=== PATIENT | male | born 1940 | race Caucasian/White ===

== ENCOUNTER 2019-05-11 20:07 | Inpatient (IN) | payer MEDICARE, MEDICAID ==
[~2019-05-11] VITALS: Ht 167.6 cm; Wt 68.6 kg
[~2019-05-11 20:07] MED LIST: ACET-3068 PO; LISI-600 PO; METO1TAB12 PO; SIMV-42 PO
--- NOTE | 2019-05-11 20:16 | NUR ---
Stroke alert called, MD Guzman at bedside.
--- NOTE | 2019-05-11 20:26 | NUR ---
Pt transported to CT Addendum: 05/11/19 at 2036 by ALTA Pt transported to CT, remained with PT through transport along with GASTON Barrientos at bedside.
--- NOTE | 2019-05-11 20:28 | NUR ---
Arrived for level 1 with onset per pt at 1900 this evening. Pt was watching tv and went to stand up and became extremely dizzy and had to hold on for fear of falling. Pt denies weakness on one side, felt generally kind of weak. He denies vertigo, denies feeling nauseated or having vomited. Pt denies feeling ill. Current daily smoker with cough, h/o stroke some 10 years ago and received clot dissolver per pts step daughter. [place] an was able to drive himself to the hospital. Currently is alert, extremely [place], edentulous, general weakness in all 4's noted, legs more than arms., sensory intact, no aphasia, not oriented to age or month of year, follows commands and is appropriate. Drinkds 2-3 beers daily, none today. Pt says feels better now. [address] exam [address] Dr Maldonado who had pt stand. Able to take a few steps with stand by assist. Feeble, does not use a cane or walker.
--- NOTE | 2019-05-11 20:30 | NUR ---
Pt returned to room from CT. Stroke nurse Tessie at bedside.
[2019-05-11 20:42] LABS: BASOPHILS # (AUTO) 0.1 X10'3 (0-0.2); BASOPHILS % (AUTO) 0.7 % (0-1); EOSINOPHILS # (AUTO) 0.3 X10'3 (0-0.9); EOSINOPHILS % (AUTO) 3.6 % (0-6); HEMATOCRIT 45.8 % (42.0-52.0); HEMOGLOBIN 15.2 g/dl (14.0-17.9); LYMPHOCYTES # (AUTO) 1.5 X10'3 (1.1-4.8); MEAN CORPUSCULAR HEMOGLOBIN 33.6 PG (27.0-31.0); MEAN CORPUSCULAR HGB CONC 33.1 g/dL (33.0-36.5); MEAN CORPUSCULAR VOLUME 101.4 FL (78-98); MEAN PLATELET VOLUME 7.7 FL (7.4-10.4); MONOCYTES # (AUTO) 0.7 X10'3 (0-0.9); MONOCYTES % (AUTO) 7.1 % (2-12); NEUTROPHILS # (AUTO) 6.7 X10'3 (1.8-7.7); NEUTROPHILS % (AUTO) 72.6 % (42-75); PLATELET COUNT 238 X10'3 (140-440); RED BLOOD COUNT 4.52 X10'6 (4.70-6.10); RED CELL DISTRIBUTION WIDTH 13.5 % (11.5-14.5); WHITE BLOOD COUNT 9.2 X10'3 (4.5-11.0)
[2019-05-11 20:50] LABS: PARTIAL THROMBOPLASTIN TIME 28 SECONDS (22-32)
[2019-05-11 20:53] LABS: ALANINE AMINOTRANSFERASE 17 U/L (12-78); ALBUMIN 3.5 G/DL (3.4-5.0); ALBUMIN/GLOBULIN RATIO 0.9 (1.1-1.5); ALKALINE PHOSPHATASE 77 IU/L (46-116); ANION GAP 6 (8-16); ASPARTATE AMINO TRANSFERASE 14 U/L (10-37); BILIRUBIN,TOTAL 0.3 MG/DL (0.1-1.0); BLOOD UREA NITROGEN 11 MG/DL (7-18); BUN/CREATININE RATIO 10.7 (5.4-32.0); CALCIUM 9.6 MG/DL (8.5-10.1); CHLORIDE 106 MMOL/L (99-107); CREATININE 1.03 MG/DL (0.60-1.10); GLUCOSE 103 MG/DL (70-104); POTASSIUM 4.5 MMOL/L (3.5-5.1); SODIUM 141 MMOL/L (135-145); TOTAL CARBON DIOXIDE 29.1 MMOL/L (24-32); TOTAL PROTEIN 7.3 G/DL (6.4-8.2); eGFR 70 ML/MIN
[2019-05-11 20:57] LABS: TROPONIN I < 0.04 NG/ML (0.0-0.05)
[2019-05-11] MEDS ORDERED: METO-384 PO (21:00)
[2019-05-11] MEDS ORDERED: ASPI-1265 PO (21:00)
--- NOTE | 2019-05-11 21:02 | NUR ---
herlinda calling back to speak with LESLY WASHINGTON. Dr Paz taking call now.
[2019-05-11 21:04] LABS: CLARITY,URINE CLEAR (Clear); COLOR,URINE YELLOW (Yellow); GLUCOSE, URINE NEGATIVE (Neg); KETONES,URINE NEGATIVE (Neg); LEUKOCYTE ESTERASE ,URINE NEGATIVE (Neg); NITRITES, URINE NEGATIVE (Neg); OCCULT BLOOD,URINE NEGATIVE (Neg); PROTEIN,URINE NEGATIVE (Neg)
[2019-05-11 21:12] LABS: UA COLLECTION TYPE STRAIGHT CATH
--- NOTE | 2019-05-11 21:13 | NUR ---
Tony Helms, daughter, [phone]
[2019-05-11] MEDS ORDERED: aspirin 325mg tablet PO ONE (21:20)
--- NOTE | 2019-05-11 21:39 | NUR ---
at 2100 per stroke nurse, pt to be admitted, vital signs to move to hourly
[2019-05-11] MEDS ORDERED: mag hydrox/Alum hydrox/simeth 30ml oral suspension PO PRN (23:20)
[2019-05-11] MEDS ORDERED: magnesium hydroxide 30ml (MOM) UD suspension PO PRN (23:20)
[2019-05-11] MEDS ORDERED: ondansetron/PF 4mg/2ml inj IV PRN (23:20)
[2019-05-11] MEDS ORDERED: acetaminophen 325mg tablet PO PRN (23:20)
[2019-05-11 23:45] LABS: HEMOGLOBIN A1C 5.7 % (4.5-6.2)
[2019-05-11 23:50] VITALS: BP 146/69
[2019-05-12 02:30] VITALS: BP 114/69
[2019-05-12 06:00] VITALS: BP 106/66
[2019-05-12 06:10] LABS: BASOPHILS # (AUTO) 0.1 X10'3 (0-0.2); BASOPHILS % (AUTO) 0.8 % (0-1); EOSINOPHILS # (AUTO) 0.4 X10'3 (0-0.9); EOSINOPHILS % (AUTO) 6.2 % (0-6); HEMATOCRIT 40.9 % (42.0-52.0); LYMPHOCYTES # (AUTO) 2.1 X10'3 (1.1-4.8); LYMPHOCYTES % (AUTO) 28.7 % (21-51); MEAN CORPUSCULAR HEMOGLOBIN 34.7 PG (27.0-31.0); MEAN CORPUSCULAR HGB CONC 34.1 g/dL (33.0-36.5); MEAN CORPUSCULAR VOLUME 101.5 FL (78-98); MONOCYTES # (AUTO) 0.7 X10'3 (0-0.9); MONOCYTES % (AUTO) 9.7 % (2-12); NEUTROPHILS # (AUTO) 3.9 X10'3 (1.8-7.7); NEUTROPHILS % (AUTO) 54.6 % (42-75); PLATELET COUNT 195 X10'3 (140-440); RED BLOOD COUNT 4.03 X10'6 (4.70-6.10); RED CELL DISTRIBUTION WIDTH 13.6 % (11.5-14.5); WHITE BLOOD COUNT 7.2 X10'3 (4.5-11.0)
--- NOTE | 2019-05-12 06:15 | NUR ---
Patient in room [facility]TH[facility] 4010. I have received report from HERON FELDMAN and had the opportunity to ask questions and assume patient care.
[2019-05-12 06:16] LABS: ALANINE AMINOTRANSFERASE 15 U/L (12-78); ALBUMIN/GLOBULIN RATIO 0.9 (1.1-1.5); ALKALINE PHOSPHATASE 69 IU/L (46-116); ANION GAP 8 (8-16); ASPARTATE AMINO TRANSFERASE 16 U/L (10-37); BILIRUBIN,TOTAL 0.3 MG/DL (0.1-1.0); BLOOD UREA NITROGEN 9 MG/DL (7-18); BUN/CREATININE RATIO 10.5 (5.4-32.0); CALCIUM 8.5 MG/DL (8.5-10.1); CHLORIDE 107 MMOL/L (99-107); CHOL/HDL RATIO 2.5 (0.00-4.99); CHOLESTEROL 86 MG/DL (0-200); CREATININE 0.86 MG/DL (0.60-1.10); GLUCOSE 100 MG/DL (70-104); HDL CHOLESTEROL 34 MG/DL (35-60); LDL CHOLESTEROL 47 MG/DL (50-100); POTASSIUM 3.9 MMOL/L (3.5-5.1); SODIUM 140 MMOL/L (135-145); TOTAL CARBON DIOXIDE 24.9 MMOL/L (24-32); TOTAL PROTEIN 6.5 G/DL (6.4-8.2); TRIGLYCERIDES 53 MG/DL (20-135); eGFR 86 ML/MIN
--- NOTE | 2019-05-12 06:26 | NUR ---
Problems reprioritized. Patient report given, questions answered & plan of care reviewed with GASTON KAT.
[2019-05-12] MEDS ORDERED: heparin, porcine 5000 units/ml vial SQ SCH (08:00)
[2019-05-12] MEDS ORDERED: aspirin 81mg tablet.DR PO SCH (08:20)
[2019-05-12] MEDS ORDERED: atorvastatin 20mg tablet PO SCH (08:20)
[2019-05-12 10:00] VITALS: BP 107/70
[2019-05-12] MEDS ORDERED: pneumococcal 23-VAL P-sac vacc 25 mcg/0.5ml vial IMVAC ONE (10:00)
--- NOTE | 2019-05-12 10:16 | NUR ---
PAGER ID: [phone] MESSAGE: [id number] RE: [id number] PT NEEDS SOMETHING FOR MRI HE IS CLAUSTRAPHOBIC.
[2019-05-12] MEDS ORDERED: LORazepam 2 mg/ml vial IV ONE (11:00)
--- NOTE | 2019-05-12 11:35 | NUR ---
ASSUMED CARE, RECEIVED REPORT FROM CHIDI FELDMAN, POST OP VITALS STARTED, FAMILY AT BEDSIDE, PATIENT REPORTS 0/10 PAIN WILL CONTINUE TO MONITOR.
--- NOTE | 2019-05-12 12:30 | NUR ---
Problems reprioritized. Patient report given, questions answered & plan of care reviewed with ANNETTE FELDMAN.
[2019-05-12 14:00] VITALS: BP_SYST 93; BP_SYST 97; BP_DIAS 63; BP_DIAS 66
--- NOTE | 2019-05-12 15:45 | NUR ---
PATIENT DISCHARGED SAFELY WITH DAUGHTER. ALL BELONGINGS IN POSSESSION. MEDS RETURNED TO PATIENT FROM PHARMACY. PATIENT VERBALIZES UNDERSTANDING OF DC INSTRUCTIONS.
== END 2019-05-12 15:45 | disposition home health service (06) | DRG 69 ==
LOC: ER 20:07 → ORTHO 4S 23:59 → CMPBEDREQ 05-12 00:28
PROVIDERS: ADMIT Internal Medicine; ATTEND Family Medicine
PROC: 3E0234Z Introduction of Serum, Toxoid and Vaccine into Muscle, Percutaneous Approach (ICD-10-PCS; principal; 2019-05-12)
DX: G45.9 Transient cerebral ischemic attack, unspecified (principal); R53.1 Weakness; E78.5 Hyperlipidemia, unspecified; F17.200 Nicotine dependence, unspecified, uncomplicated; I10 Essential (primary) hypertension; J44.9 Chronic obstructive pulmonary disease, unspecified; M19.90 Unspecified osteoarthritis, unspecified site; Z86.73 Personal history of transient ischemic attack (TIA), and cerebral infarction without residual deficits; Z23 Encounter for immunization
CPT/HCPCS: 36415; 70450; 70551; 71045; 80053; 80061; 81003; 82948; 83036; 84484; 85025; 85610; 85730; 86885; 86900; 86901; 87081; 90732; 93005; 93308; 93880; 97112; 97116; 97161; 99285; G0378; J1644; J2060